=== PATIENT | female | born 1955 | race Caucasian/White ===

== ENCOUNTER 2017-10-12 12:42 | Day surgery (SDC) | payer OTHER ==
[~2017-10-12 12:42] MED LIST: ATROPINE 1 MG/10 ML SYRINGE IV; DIPHENHYDRAMINE 50 MG INJ IV; EPHEDrine SULFATE 50 MG/5 ML SYG IV; FENTAnyl 50 MCG/ML VIAL IV; LABETALOL HCL 20MG INJ IV; MEPERIDINE 25 MG INJ IV; MIDAZOLAM 1 MG/ML 2 ML INJ IV; ONDANSETRON 4 MG INJ IV
[2017-10-12] MEDS ORDERED: LACTATED RINGER'S 1,000 ML IV* (13:00)
[2017-10-12] MEDS: INSULIN ASPART [NOVOLOG] 3 ML PEN SC (14:29)
[2017-10-12] MEDS ORDERED: MIDAZOLAM 1 MG/ML 2 ML INJ (17:29)
[2017-10-12] MEDS: BUPIVACAINE 0.5% (SDV) 30 ML INJ (18:08)
[2017-10-12] MEDS ORDERED: CEFAZOLIN 1 GM INJ (18:13)
[2017-10-12] MEDS ORDERED: PROPOFOL 20 ML (18:13)
[2017-10-12] MEDS ORDERED: ONDANSETRON 4 MG INJ (18:13)
[2017-10-12] MEDS ORDERED: LIDOCAINE 2% (SDV) 5 ML INJ (18:13)
[2017-10-12] MEDS ORDERED: MEPERIDINE 25 MG INJ IV (18:30)
[2017-10-12] MEDS ORDERED: DIPHENHYDRAMINE 50 MG INJ IV (18:30)
[2017-10-12] MEDS ORDERED: FENTAnyl 50 MCG/ML VIAL IV (18:30)
[2017-10-12] MEDS ORDERED: ONDANSETRON 4 MG INJ IV (18:30)
[2017-10-12] MEDS: FENTAnyl 50 MCG/ML VIAL IV (18:43)
[2017-10-12] MEDS: hydrALAzine 20 MG INJ IV (19:03)
== END 2017-10-12 19:51 | disposition home or self-care (01) ==
LOC: SDS 12:42
DX: G56.01 Carpal tunnel syndrome, right upper limb (principal); M65.331 Trigger finger, right middle finger; I10 Essential (primary) hypertension; E78.5 Hyperlipidemia, unspecified; E66.01 Morbid (severe) obesity due to excess calories
CPT/HCPCS: 26055; 82962

== ENCOUNTER 2017-11-02 06:01 | Day surgery (SDC) | payer OTHER ==
[2017-11-02] MEDS: NEPAFENAC 0.1% 3 ML OPH RIGHT EYE (06:41)
[2017-11-02] MEDS: MOXIFLOXACIN 0.5% 3 ML OPH OPER (06:41)
[2017-11-02] MEDS: CYCLOPENTOLATE 2% 2 ML OPH OPER (06:41)
[2017-11-02] MEDS: PHENYLephrine 10% 5 ML OPH OPER (06:41)
[2017-11-02] MEDS ORDERED: LIDOCAINE 2% (SDV) 5 ML INJ (06:48)
[2017-11-02] MEDS ORDERED: BUPIVACAINE 0.75%/DEXT (SPINAL) 2 ML INJ (06:51)
[2017-11-02] MEDS ORDERED: EPINEPHrine 1 MG INJ (06:51)
[2017-11-02] MEDS ORDERED: TIMOLOL 0.5% 5 ML OPH (06:51)
[2017-11-02] MEDS ORDERED: PHENYLephrine 10% 5 ML OPH (06:51)
[2017-11-02] MEDS ORDERED: TETRACAINE 0.5% 4 ML OPH (06:51)
[2017-11-02] MEDS ORDERED: BUPIVACAINE 0.75% (MPF) 10 ML INJ (06:52)
[2017-11-02] MEDS ORDERED: SODIUM BICARBONATE (IV ADD) 50 ML (06:52)
[2017-11-02] MEDS: INSULIN REGULAR, HUMAN 100 UNIT/1 ML 3ML VIAL SC (06:53)
[2017-11-02] MEDS ORDERED: PROPOFOL 20 ML (07:25)
[2017-11-02] MEDS ORDERED: LIDOCAINE 100 MG SYRINGE (07:25)
[2017-11-02] MEDS ORDERED: MEPERIDINE 25 MG INJ IV (07:30)
[2017-11-02] MEDS ORDERED: EPHEDrine SULFATE 50 MG/5 ML SYG IV (07:30)
[2017-11-02] MEDS ORDERED: METOCLOPRAMIDE 10 MG INJ IV (07:30)
[2017-11-02] MEDS ORDERED: DIPHENHYDRAMINE 50 MG INJ IV (07:30)
[2017-11-02] MEDS ORDERED: ONDANSETRON 4 MG INJ IV (07:30)
[2017-11-02] MEDS ORDERED: FENTAnyl 50 MCG/ML VIAL IV ×3 (07:30)
[2017-11-02] MEDS ORDERED: hydrALAzine 20 MG INJ IV (07:30)
[2017-11-02] MEDS ORDERED: MIDAZOLAM 1 MG/ML 2 ML INJ IV (07:30)
[2017-11-02] MEDS ORDERED: LABETALOL HCL 20MG INJ IV (07:30)
[2017-11-02] MEDS ORDERED: METOCLOPRAMIDE 10 MG INJ (07:45)
[2017-11-02] MEDS ORDERED: ONDANSETRON 4 MG INJ (07:45)
[2017-11-02] MEDS ORDERED: ACETAMINOPHEN 500 MG TAB PO (09:04)
== END 2017-11-02 09:50 | disposition home or self-care (01) ==
LOC: SDS 06:01
DX: H25.12 Age-related nuclear cataract, left eye (principal); E11.9 Type 2 diabetes mellitus without complications
CPT/HCPCS: 66984; 82962